=== PATIENT | male | born 1990 | race Caucasian/White ===

== ENCOUNTER 2018-04-20 16:12 | Emergency (ER) | payer OTHER ==
[~2018-04-20] VITALS: Ht 175.3 cm; Wt 103.4 kg
[2018-04-20 16:21] VITALS: Ht 175.3 cm; Wt 103.4 kg
[2018-04-20 18:45] VITALS: BP 135/72
== END 2018-04-20 18:45 | disposition home or self-care (01) ==
LOC: ED 16:12
DX: S39.012A Strain of muscle, fascia and tendon of lower back, initial encounter (principal); X50.1XXA Overexertion from prolonged static or awkward postures, initial encounter; Y93.89 Activity, other specified; Y92.89 Other specified places as the place of occurrence of the external cause; Y99.8 Other external cause status
CPT/HCPCS: J1885